=== PATIENT | female | born 1985 | race Hispanic/Latino ===

== ENCOUNTER 2021-05-16 03:42 | Inpatient (IN) | payer OTHER ==
[2021-05-15 17:42] LABS: Absolute Lymphocytes (CBC) 1.3 K/uL (0.7-4.9); Basophils % 0.1 % (0-1.3); Hematocrit 38.4 % (36.0-45.0); Lymphocytes % 16.2 % (15.3-44.8); MPV 8.7 fL (7.6-11.3); RBC Red Blood Cell Count 4.04 M/uL (3.86-4.86)
[2021-05-15 17:47] LABS: Protime INR 0.94
[~2021-05-16 03:42] MED LIST: CEFAZOLIN 2 GM in NA CHLORIDE 0.9% 100 ML IVPB SCH
[2021-05-16] MEDS ORDERED: Ringers Lactate 1,000 ML IV PRN (04:39)
[2021-05-16] MEDS ORDERED: NA CIT/CITRIC AC 30 ML ORAL UDC PO ONE (04:46)
[2021-05-16] MEDS ORDERED: FAMOTIDINE 20 MG/2 ML VIAL IV ONE (05:00)
[2021-05-16] MEDS ORDERED: Ringers Lactate 1,000 ML IV SCH (05:00)
[2021-05-16] MEDS ORDERED: METOCLOPRAMIDE 10 MG/2mL INJ IV SCH (05:00)
[2021-05-16 05:35] VITALS: BMI 34.5
[2021-05-16] MEDS ORDERED: CEFAZOLIN 2 GM in NA CHLORIDE 0.9% 100 ML IVPB ONE ×3 (05:40→19:00)
[2021-05-16] MEDS ORDERED: OXYTOCIN 10 UNIT/ML ML ONE ×3 (06:18→09:30)
[2021-05-16] MEDS ORDERED: CARBOPROST TROME 250 MCG/ML IM ONE (06:19)
[2021-05-16] MEDS ORDERED: MORPHINE SULFATE/PF 1 MG/ML (10 ML AMP) ONE (08:33)
[2021-05-16] MEDS ORDERED: LIDOCAINE 2% MPF 5 ML VIAL ONE (08:34)
[2021-05-16] MEDS ORDERED: BUPIVACAINE 0.75% (PF) 2 ML SP ONE (08:36)
[2021-05-16] MEDS ORDERED: INFLUENZA VACCINE (for 6+ mo) 0.5 ML DOSE IMVAC ONE (09:00)
[2021-05-16] MEDS ORDERED: NS 0.9% VIAL 10 ML ONE (09:06)
[2021-05-16] MEDS ORDERED: Phenylephrine HCl 10 MG/ML 1 ML VIAL ONE (09:06)
[2021-05-16] MEDS ORDERED: ACETAMINOPHEN 500 MG TAB PO PRN ×2 (10:02)
[2021-05-16] MEDS ORDERED: KETOROLAC 30 MG/ML INJ IV PRN (10:02)
[2021-05-16] MEDS ORDERED: ONDANSETRON 4 MG/2 ML VIAL IV PRN (10:02)
[2021-05-16] MEDS ORDERED: DIPHENHYDRAMINE 25 MG TAB/CAP PO PRN (10:02)
[2021-05-16] MEDS ORDERED: ONDANSETRON 4 MG (ODT) TAB PO PRN (10:02)
[2021-05-16] MEDS ORDERED: Oxycodone HCl/Acetaminophen 1 TAB TAB PO PRN (10:02)
[2021-05-16] MEDS ORDERED: BISACODYL 10 MG RECTAL SUPP RC PRN (10:02)
[2021-05-16] MEDS ORDERED: KETOROLAC 30 MG/ML INJ IM PRN (10:02)
[2021-05-16] MEDS ORDERED: OXYTOCIN/LR 20 UNIT/1,000 ML BAG IV SCH (11:00)
[2021-05-16] MEDS ORDERED: D5LR 1,000 ML with OXYTOCIN 20 UNIT IV SCH ×2 (11:00)
[2021-05-16] MEDS ORDERED: METHYLERGONOVINE 0.2MG/ML AMP IM ONE (17:53)
[2021-05-16] MEDS ORDERED: CEFAZOLIN/SWI 2gm 2 GM/20 ML SYR IVP ONE (18:00)
[2021-05-17] MEDS ORDERED: MAGNESIUM HYDROXIDE 8% 30 ML PO PRN (10:02)
[2021-05-17] MEDS: Oxycodone HCl/Acetaminophen 1 TAB TAB PO PRN ×2 (10:51→19:57)
--- NOTE | 2021-05-17 10:57 | PN ---
Postoperatively, the patient is doing quite well. H and H with no change. Lochia is normal. No com plaints or problems. We will discontinue Arteaga and IV, get the patient ambulating. Offer p.o. intak e. Immunizations again discussed. She can get these before she leaves, especially Tdap if she has n ot already had it and flu shot. Post discharge instructions given to report any temperature elevatio n of 100 degrees or greater, severe pain, heavy bleeding, or any other type of abnormalities. She is to call the office on Wednesday to make an appointment to see me on Wednesday for staple removal. We w ill go over this again tomorrow. Today, she has no complaints, no problems. Doing well. HOWARD/TIFFANY Voice ID: [id number] Report ID: [id number]
[2021-05-17] MEDS ORDERED: DIPHENHYDRAMINE 25 MG TAB/CAP PO ONE (11:16)
[2021-05-17] MEDS: IBUPROFEN 600 MG TAB PO PRN ×2 (14:12→21:53)
[2021-05-18] MEDS: Oxycodone HCl/Acetaminophen 1 TAB TAB PO PRN ×2 (01:25→08:49)
[2021-05-18 07:28] VITALS: BP 110/65; TEMP 96.7
[2021-05-18] MEDS ORDERED: Tdap (Diph,Pertuss(Acell),Tet Vac) 0.5 ML SYR IMVAC ONE (09:00)
--- NOTE | 2021-05-20 11:30 | OP ---
Surgeon: Michael Gilbert MD [facility]: [facility] Surgeon: Dr. Higgins. After spinal block anesthesia, prepped and draped in usual sterile manner, placed in dorsal supine po sition. Time-out was performed. A Pfannenstiel incision was created over the previous incision site . The incision carried to the fascia. The fascia was incised and incision carried transversely. An terior and posterior fascial planes were developed with both blunt and sharp dissection. Underlying rectus muscles were . Defect was seen and traction was applied. The lower uterine segment was very thin. Very thin amount of bladder flap was developed, but basically it was almost transluce nt. A transverse incision was created. A 9-jdmey-93-ounce male was delivered through the incision w ithout difficulties. Apgars 8 and 9. Cord blood specimen obtained. Placenta removed manually. [place] yoni cleared of clot and blood. Cervical os dilated with ring clamp. Uterus closed with a running lo cked stitch of 1 chromic followed by imbricating stitch of 1 chromic and then followed by 4-5 figure- of-eight stitches along the suture line for complete hemostasis. Estimated blood loss during the pro cedure 850 cc. Bilateral tubal ligation was performed each tube being kinked in the midportion tripl y tied with 2-0 plain segment of tube removed. The tubal lumen was fulgurated. Gutters were cleared of clot and blood. Uterus replaced in the peritoneal cavity. Both ligation sites on either side we re checked and noted to be intact. The incision line was checked again without problems. The rectus muscles were reapproximated using 0 Vicryl 3 interrupted sutures. One Vicryl was used to close the fascia running from either angle to the midline, 2-0 plain used to close the subcutaneous tissue and mckayla for the skin. The patient had been given 2 g of Ancef. Tolerated all procedures well. Cook sferred back to her room in good condition. Anesthesiologist: Spinal block anesthesia Jas Calderon in conjunction with Dr. Argelia Woodruff. A 35-year-old 3, para 2, for repeat , tubal sterilization. The patient has a histor y of cholestasis of , seen in consultation with Dr. Lowe, high-risk control field representative at [place]. The patient has suspicion for placenta accreta, underwent 2 ultrasounds and an MRI, and was found a nd decided there was no placenta accreta, so the surgery could be done here. Final Diagnoses: Term intrauterine , repeat section x3, cholestasis of , suspicion for placenta accreta-none seen. HOWARD/TIFFANY Voice ID: [id number] Report ID: [id number]
--- NOTE | 2021-05-20 11:30 | DS ---
Date of Discharge: 05/18/2021 A 35-year-old 3, para 2, 2 previous C-sections, for repeat , tubal sterilization. T he patient has cholestasis of . She has been seen by a high-retail product demo specialist in [place] who recommended delivery between 38 and 39 weeks and tubal sterilization. She also had suspicion for luan centa accreta, had to undergo 2-3 ultrasounds and MRI before was it determined, but she did not have placenta accreta. A section was performed with the delivery of a 7-pound 15-ounce male infa nt, Apgars 8 and 9, spinal block anesthesia, 850 cc blood loss. Bilateral tubal ligation was perform ed. The patient has remained afebrile, ambulating, voiding. Lochia is scant. She will be dismissed this morning, to report back to my office on Wednesday for followup, to report any temperature eleva tion of 100 degrees or greater, severe pain, heavy bleeding, or any other type of abnormalities. Dis missed with tramadol for analgesia. Tdap and flu shots offered, and we have also discussed COVID imm unizations during her . No post spinal block problems. Final Diagnoses: Term intrauterine , cholestasis of , suspicion for placenta accre ta, but none seen, repeat section, tubal sterilization. HOWARD/TIFFANY Voice ID: [id number] Report ID: [id number]
--- NOTE | 2021-05-20 11:36 | PREOPHP ---
Date of Admission: 05/16/2021 History: A 35-year-old 3, para 2, 2 previous C-sections for repeat . Infection; bl ood loss; anesthetic complications; injury to bladder, bowel, or ureter; postoperative complications; clots in legs; pneumonia discussed. The patient knows fully well this does not constitute all the p ossible problems that could occur during or following surgery. The patient has had ultrasound evalua tion in [place] and MRI in [place] that has come to the conclusion that she does not have placenta ac creta. She knows that this is not 100% guarantee and that if she does have placenta accreta and we e ncountered excessive bleeding, she might even have to do a hysterectomy. The patient also wants a tu bal sterilization. Pros and cons of this discussed, failure rate discussed, and the patient knows th at if we encountered significant scarring, I may not be able to do the tubal in which case her husban d would have to get a vasectomy. Family History: Father with hypertension. Father, mother, and grandparents with heart attacks. Fat her with stroke. Grandparents with diabetes. Past Surgical History: The patient has had 2 previous sections in [facility]. Allergies: NO ALLERGIES. Medications: vitamins prior to admission. Social History: Does not smoke. Physical Examination: HEENT: Clear. Pupils are equal, round, and reactive to light and accommodation. Conjunctivae well perfused. No oral, lingual, or buccal lesions. Chest and Lungs: Clear. Heart: Without murmurs, thrills, heaves, or rubs. Breasts: Without masses on previous visits. Abdomen: Term size. Baby is vertex, is still floating. Cervix is fingertip. Extremities: Clear without edema, cyanosis, or clubbing. Assessment And Plan: We will proceed with section, tubal sterilization tomorrow morning. HOWARD/TIFFANY Voice ID: [id number]
== END 2021-05-18 09:45 | disposition home or self-care (01) | DRG 786 ==
LOC: 2ND-WC 03:42
PROVIDERS: ADMIT Specialist; ATTEND Specialist
PROC: 10D00Z1 Extraction of Products of Conception, Low, Open Approach (ICD-10-PCS; principal; 2021-05-16 07:30)
DX: O34.211 Maternal care for low transverse scar from previous cesarean delivery (principal); K83.1 Obstruction of bile duct; O26.62 Liver and biliary tract disorders in childbirth; Z3A.38 38 weeks gestation of pregnancy; Z37.0 Single live birth; Z23 Encounter for immunization
CPT/HCPCS: 36415; 85014; 85025; 85610; 85730; 86850; 86900; 86901; 88302; 88307; 90471; 90715; J0690; J2210; J2370; J2765; J7120; J7121